=== PATIENT | female | born 1955 | race Caucasian/White ===

== ENCOUNTER → 2024-05-12 12:50 | Outpatient (REF) | payer BC, SELFPAY | LOC: HWWDC 12:50 | PROVIDERS: ATTENDING PHYSICIAN Obstetrics & Gynecology Gynecology; FAMILY PHYSICIAN Family Medicine | DX: Z12.31 Encounter for screening mammogram for malignant neoplasm of breast (principal) | CPT/HCPCS: 77063; 77067 ==

== ENCOUNTER → 2024-05-25 12:22 | Outpatient (REF) | payer BC, SELFPAY | LOC: HWRAD 12:22 | PROVIDERS: ATTENDING PHYSICIAN Internal Medicine Rheumatology; FAMILY PHYSICIAN Family Medicine | DX: M15.0 Primary generalized (osteo)arthritis (principal); M25.551 Pain in right hip; M25.561 Pain in right knee | CPT/HCPCS: 73523; 73560; 73565 ==

== ENCOUNTER 2024-12-13 08:25 | Inpatient (IN) | payer OTHER, SELFPAY ==
[2024-11-29 14:01] LABS: % Basophils 0.4 % (0-2); % Immature Granulocytes 0.2 % (0-0.5); % Lymphocytes 26.8 % (20.5-51.1); % Neutrophils 62.6 % (42.2-75.2); Absolute Eosinophils 0.1 10^3/uL (0-0.7); Absolute Lymphocytes 1.4 10^3/uL (1.2-3.4); Absolute Monocytes 0.4 10^3/uL (0.1-0.6); Absolute Neutrophils 3.2 10^3/uL (1.4-6.5); Hematocrit 34.4 % (37.0-47.0); Hemoglobin 11.6 g/dL (12.0-16.0); Mean Corp Hgb Conc. 33.7 g/dL (33.0-37.0); Mean Corpuscular Hgb 33.1 pg (27.0-31.0); Mean Corpuscular Volume 98.3 fL (81.0-99.0); Mean Platelet Volume 8.9 fL (7.4-10.4); Nucleated Red Blood Cells % 0 %; Platelet Count 240 10^3/uL (130-400); Red Cell Dist. Width 12.2 % (11.5-14.5); White Blood Cell Count 5.1 10^3/uL (4.8-10.8)
[2024-11-29 14:14] VITALS: BMI 24.8
[2024-11-29 14:16] LABS: ALT (SGPT) 31 U/L (0-35); AST (SGOT) 28 U/L (14-36); Albumin 4.5 g/dl (3.5-5.0); Alkaline Phosphatase 70 U/L (38-126); Blood Urea Nitrogen 14 mg/dl (7-17); Calcium 9.8 mg/dl (8.4-10.2); Carbon Dioxide 29 mmol/L (22-30); Chloride 100 mmol/L (98-107); Estimated Creatinine Clearance 48 ml/min; Glucose 86 mg/dl (70-99); Potassium 4.5 mmol/L (3.5-5.1); Sodium 137 mmol/L (135-145); Total Bilirubin 0.6 mg/dl (0.2-1.3); Total Protein 6.9 g/dl (6.3-8.2); eGFR > 60.00
[2024-11-29 14:39] LABS: Glycohemoglobin (HgbA1c) 4.7 % (4.0-5.6)
[2024-11-29 15:32] LABS: Vitamin B12 724 pg/ml (239-931)
[2024-11-29 18:38] LABS: Hepatitis C Antibody Negative (Negative)
[2024-12-08 14:50] VITALS: BMI 24.8
[2024-12-13] VITALS (18 sets, daily range): BP systolic 104–157; BP diastolic 51–91; PULSE 92–113; BMI 24.8; BMI 25.7
[2024-12-13] MEDS: NORMOSOL-R/PLASMALYTE-A 1000 IV ×2 (10:01→13:35)
[2024-12-13] MEDS: CELEBREX 200 MG PO (10:02)
[2024-12-13] MEDS: TYLENOL 650 MG PO ×3 (10:02→19:53)
[2024-12-13] MEDS: DEMEROL 12.5 MG IV ×2 (12:54→13:07)
[2024-12-13] MEDS: DILAUDID 0.25 MG IV ×4 (13:16→14:08)
[2024-12-13] MEDS: ROXICODONE 5 MG PO (13:46)
--- NOTE | 2024-12-13 14:30 | SUR.PHASEI ---
patient post op total right hip, general anesthesia, knees and hips flexed on arrival, biting lip - c/o severe pain right hip, and shivers. Medicated with demerol for shivers and pain and then multiple doses of dilaudid, as well as roxicodone and
tylenol. keeps neck arched back, crying. states her chronic pain is 6-7/10 - current pain 8/10, untouched with meds. vss. encouraged to deep breathe and relax, warm covers on. states she has lived with constant pain for years. Contact N.
Annamaria CRAWFORD for further orders.
--- NOTE | 2024-12-13 14:44 | W.PN.UPDATE ---
Update Note
Progress Note Update
R hip OA s/p R JOANNA w/ Dr Zhao 12/13/24
DVT prophylaxis - ASA, b/l venous foot pumps
Anemia w/ underlying B12 deficiency - non-invasive hgb in AM
- Supplement w/ IM B12 during admission
Fibromyalgia - given pain in PACU, will adjust pain meds
- Baseline pain 04/19 reportedly
Mild valvular disease
Degenerative disc disease
Scoliosis
Hypothyroidism
OAB
Osteopenia
Depression
Anxiety
ADHD
Insomnia
[2024-12-13] MEDS: VALIUM 2 MG PO ×2 (14:47→19:52)
[2024-12-13] MEDS: TORADOL 15 MG IV (14:48)
--- NOTE | 2024-12-13 16:01 | SUR.PHASEI ---
much more comfortable, OOB with PT - tolerated well. VS discharge to [facility]
--- NOTE | 2024-12-13 16:25 | PTCARENOTE ---
pt received from PACU AAOx4, pain level is a 4, right hip/thigh dressing with small amount of bleeding, neuro checks to right leg intact. Family, present, pt given PO fluids, resting comfortably
[2024-12-13] MEDS: ASPIRIN 325 MG PO (18:07)
[2024-12-13] MEDS: ROXICODONE 10 MG PO (18:07)
[2024-12-13] MEDS: TYLENOL PO (18:08)
[2024-12-13] MEDS: LIDOCAINE 4% PATCH 2 PATCH TOPICAL (18:08)
[2024-12-13] MEDS: SENOKOT 17.2 MG PO (19:52)
[2024-12-13] MEDS: DECADRON 4 MG PO (19:52)
[2024-12-13] MEDS: COLACE 100 MG PO (19:53)
[2024-12-13] MEDS: ANCEF 5 IV (19:53)
[2024-12-13] MEDS: BACTROBAN 2% OINTMENT 1 APPLIC NASAL (19:54)
[2024-12-13] MEDS: NEURONTIN 300 MG PO (22:30)
[2024-12-13] MEDS: PEPCID 20 MG PO (22:30)
[2024-12-13] MEDS: CYMBALTA DELAYED RELEASE 60 MG PO (22:36)
[2024-12-14] MEDS: TYLENOL PO
[2024-12-14 03:45] VITALS: BP 108/52
[2024-12-14] MEDS: TYLENOL 650 MG PO ×2 (04:36→08:00)
[2024-12-14] MEDS: ANCEF 5 IV (04:36)
[2024-12-14] MEDS: SYNTHROID 137 MCG PO (06:32)
[2024-12-14 07:37] VITALS: BP 118/49
[2024-12-14] MEDS: CYANOCOBALAMIN 1000 MCG IM (07:58)
[2024-12-14] MEDS: LIDOCAINE 4% PATCH 2 PATCH TOPICAL (07:58)
[2024-12-14] MEDS: DECADRON 4 MG PO (07:59)
[2024-12-14] MEDS: MOBIC 15 MG PO (07:59)
[2024-12-14] MEDS: VALIUM 2 MG PO (07:59)
[2024-12-14] MEDS: WELLBUTRIN XL (24 hour extended release) 300 MG PO (08:00)
[2024-12-14] MEDS: ASPIRIN 325 MG PO (08:00)
[2024-12-14] MEDS: COLACE 100 MG PO (08:00)
[2024-12-14] MEDS: DETROL LA 4 MG PO (08:00)
[2024-12-14] MEDS: SENOKOT 17.2 MG PO (08:00)
[2024-12-14] MEDS: BACTROBAN 2% OINTMENT 1 APPLIC NASAL (08:01)
[2024-12-14] MEDS: CYTOMEL 5 MICROGRAM PO (08:01)
[2024-12-14] MEDS: ROXICODONE 10 MG PO (08:04)
[2024-12-14 09:20] VITALS: BP 111/61; BP 113/76; PULSE 86; O2SAT 96
--- NOTE | 2024-12-14 09:30 | W.PN.ORTHO ---
Today's Communication / Plan
-
Await PT recs. Pt did well w/ OT this AM.
D/c later today if remaining clinically stable.
Assessment
.
Dressing:
Small, old incisional drainage noted.
Assessment:
R hip OA s/p [place] [facility] w/ Dr Zhao 12/13/24
DVT prophylaxis - ASA, b/l venous foot pumps
Anemia w/ underlying B12 deficiency - await non-invasive hgb
- Supplement w/ IM B12 during admission
Fibromyalgia - pain better controlled by POD 1 w/ addition of Valium, Lidocaine patches
- Baseline pain 04/19 reportedly
Mild valvular disease
Degenerative disc disease
Scoliosis
Hypothyroidism
OAB
Osteopenia
Depression
Anxiety
ADHD
Insomnia
Plan
.
Surgery / Date: [place] [facility] w/ Dr Zhao 12/13/24
DVT Prophylaxis: Aspirin
Activity:
Out of bed.
PT/OT
Discharge Plan: Home w/ Outpatient PT
Subjective
.
.:
Patient resting comfortably in her chair.
R hip pain improved w/ pain med adjustments from yesterday.
Denies any new significant complaints.
Eager for potential d/c today.
Vital Signs and Labs
.
Vital Signs and Labs:
Lab Results
11/29/24 13:09
11/29/24 13:09
Temp Pulse Resp BP Pulse Ox
98.3 F 82 16 118/49 96
12/14/24 07:37 12/14/24 07:37 12/14/24 07:37 12/14/24 07:37 12/14/24 07:37
Physical Exam
-
HEENT: No pallor, cyanosis, or jaundice. Throat clear.
NECK: Supple. No JVD.
RESPIRATORY: Lungs clear to auscultation.
CVS: S1, S2 normal. RRR.�
ABDOMEN: Soft, non-tender. No distension.
EXTREMITIES: Strength equal, no calf pain with palpation/dorsiflexion. Calves soft.
CAMPUS INTERVIEWS INTERN: AOx3. No focal deficits. wrapper dipper grossly intact
--- NOTE | 2024-12-14 09:48 | W.DS.TRANS ---
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
-
Discharge Instructions:
Sleep Apnea Risk Low
Discharge Diagnosis/Procedures R hip OA s/p R JOANNA w/ Dr Ramos 12/13/24
Diet Regular
Activity As tolerated,With Walker
Driving Restrictions Not until seen by your Dr
Bathing Restrictions OK to Shower
Other Services PT
Wound Care Dressing to be removed 1 week post-surgery.
Diane to be removed at 2 week follow-up with
surgeon's office.
Instructions:
Stand-Alone Forms: Total Hip/Knee Replacement D/C
Changes to Home Medications: Yes
Discharge Medications:
DC Medications w/original date entered in [employer]
bupropion HCl 300 mg 24 hr tablet, extended release 300 mg PO DAILY Mental Health/Anxiety 03/02/14
duloxetine 60 mg capsule,delayed release 60 mg PO DAILY Mental Health/Anxiety 11/26/24
estradiol 0.05 mg/24 hr semiweekly transdermal patch 1 patch transdermal .2 TIMES A WEEK Hormonal Agent 11/26/24
hydroxyprogesterone cap(ppres) 2.5 mg PO DAILY Hormonal Agent 11/26/24
levothyroxine 137 mcg tablet 137 mcg PO DAILY Thyroid 11/26/24
liothyronine 5 mcg tablet 5 mcg PO DAILY Thyroid 11/26/24
vibegron 75 mg tablet (Gemtesa) 75 mg PO DAILY Urinary Issue 11/26/24
dexamethasone 4 mg tablet 4 mg PO BID inflammation #6 tabs 11/29/24
gabapentin 300 mg capsule 300 mg PO HS sleep/pain #10 caps 11/29/24
meloxicam 15 mg tablet 15 mg PO DAILY anti-inflammatory #14 tabs 11/29/24
mupirocin 2 % topical ointment 1 applic topical BID infection prevention #1 tube 11/29/24
ondansetron 4 mg disintegrating tablet 4 mg PO Q6H PRN n/v #20 tabs 11/29/24
oxycodone 5 mg tablet 5 mg PO Q6H PRN 1 tab moderate pain, 2 tabs severe pain #30 tabs 11/29/24
Mucinex : 1 tab PO DAILYPRN PRN congestion ##0 12/14/24
acetaminophen 325 mg tablet 650 mg (2 x 325 mg) PO Q4HWA #60 tabs 12/14/24
aspirin 325 mg tablet 325 mg PO DAILY #30 tabs 12/14/24
diazepam 2 mg tablet 2 mg PO BID PRN muscle spasms #20 tabs 12/14/24
docusate sodium 100 mg capsule 100 mg PO BID #30 caps 12/14/24
lidocaine 4 % topical patch 2 patch topical DAILY #30 ea 12/14/24
psyllium 1 packet PO DAILYPRN PRN constipation #0 ea 12/14/24
sennosides 8.6 mg tablet (Maria C-arias) 17.2 mg (2 x 8.6 mg) PO BID #30 tabs 12/14/24
Home Medication Changes
dexamethasone 4 mg tablet 4 mg PO BID inflammation #6 tabs 11/29/24
gabapentin 300 mg capsule 300 mg PO HS sleep/pain #10 caps 11/29/24
meloxicam 15 mg tablet 15 mg PO DAILY anti-inflammatory #14 tabs 11/29/24
mupirocin 2 % topical ointment 1 applic topical BID infection prevention #1 tube 11/29/24
ondansetron 4 mg disintegrating tablet 4 mg PO Q6H PRN n/v #20 tabs 11/29/24
oxycodone 5 mg tablet 5 mg PO Q6H PRN 1 tab moderate pain, 2 tabs severe pain #30 tabs 11/29/24
acetaminophen 325 mg tablet 650 mg (2 x 325 mg) PO Q4HWA #60 tabs 12/14/24
aspirin 325 mg tablet 325 mg PO DAILY #30 tabs 12/14/24
diazepam 2 mg tablet 2 mg PO BID PRN muscle spasms #20 tabs 12/14/24
docusate sodium 100 mg capsule 100 mg PO BID #30 caps 12/14/24
lidocaine 4 % topical patch 2 patch topical DAILY #30 ea 12/14/24
sennosides 8.6 mg tablet (Maria C-arias) 17.2 mg (2 x 8.6 mg) PO BID #30 tabs 12/14/24
Pending Results: No
[2024-12-14 09:55] VITALS: BP 109/57; PULSE 96; O2SAT 98
--- NOTE | 2024-12-14 10:17 | CM ---
Addendum entered by Africa Perez 12/14/24 10:21:
IMM explained & signed. In chart
Original Note:
Patient seen at bedside.
IA Completed
CM consult completed.
patient has an appt with [facility] outpatient rehab tomorrow
Lives in 1 story home with , 5 steps to enter
PLOF: Cane
DME: Cane, walker, shower chair, mounter sousaphones
Denies HH/outpatient rehab in past in [place]
Denies insecurities
PCP: Jazlyn Rodriguez
Pharmacy: [facility]
PLAN: Home with outpatient rehab at [facility]
to transport
== END 2024-12-14 11:40 | disposition home or self-care (01) | DRG 470 ==
LOC: 2 SOUTH 08:25
PROVIDERS: ADMITTING PHYSICIAN Specialist; FAMILY PHYSICIAN Family Medicine
PROC: 0SR904A Replacement of Right Hip Joint with Ceramic on Polyethylene Synthetic Substitute, Uncemented, Open Approach (ICD-10-PCS; 2024-12-13)
DX: M16.11 Unilateral primary osteoarthritis, right hip (principal); E53.8 Deficiency of other specified B group vitamins; M79.7 Fibromyalgia
CPT/HCPCS: 36415; 73502; 80053; 82607; 83036; 85025; 86803; 86850; 86900; 86901; 87070; 93005; 97110; 97163; 97166; 97530; 97535; C1713; C1776

== ENCOUNTER → 2025-05-24 12:49 | Outpatient (REF) | payer OTHER, SELFPAY | LOC: HWRAD 12:49 | PROVIDERS: ATTENDING PHYSICIAN Internal Medicine Rheumatology; FAMILY PHYSICIAN Family Medicine | DX: M75.51 Bursitis of right shoulder (principal) | CPT/HCPCS: 73030 ==

== ENCOUNTER → 2025-06-07 10:52 | Outpatient (REF) | payer OTHER, SELFPAY | LOC: HWWDC 10:52 | PROVIDERS: ATTENDING PHYSICIAN Internal Medicine Rheumatology; FAMILY PHYSICIAN Family Medicine; REFERRING PHYSICIAN Obstetrics & Gynecology Gynecology | DX: Z12.31 Encounter for screening mammogram for malignant neoplasm of breast (principal); M81.0 Age-related osteoporosis without current pathological fracture | CPT/HCPCS: 77063; 77067; 77080 ==